=== PATIENT | female | born 1935 | race Caucasian/White ===

== ENCOUNTER → 2019-02-14 | Outpatient (CLI) | payer MEDICARE ==
--- NOTE | 2019-02-15 07:32 | CT ---
EXAMINATION TYPE: CT iac wo con DATE OF EXAM: 02/14/2019 COMPARISON: None HISTORY: Tinnitus and hearing loss, worse in right ear. CT DLP: 142.7 mGycm CONTRAST: 0 mL of Isovue 300 Findings: Mucosal thickening is within the left maxillary sinus. Mild diffuse mucosal thickening is t hrough ethmoid air cells. The sphenoid sinuses and frontal sinuses are clear. Mastoid air cells are clear. There is abundant aeration within the petrous ridges. Septum is midline. The ostiomeatal units are patent. Internal auditory canals appear normal without expansion or erosion. Cochlea are normal. Semicircular canals are normal. External auditory canals and middle ears are clear. Scutum are normal. Incus and malleus have normal orientation. The attics are clear. IMPRESSIONS: 1. Normal internal auditory canal study.
== END | disposition home or self-care (01) ==
LOC: RADCTMAIN 16:01
PROVIDERS: ATTEND Otolaryngology
DX: H93.19 Tinnitus, unspecified ear (principal); H91.90 Unspecified hearing loss, unspecified ear
CPT/HCPCS: 36415; 70480; 82565; 84520